=== PATIENT | female | born 2005 | race Caucasian/White ===

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

== ENCOUNTER 2024-05-13 17:05 | Emergency (ER) | payer OTHER, SELFPAY ==
[2024-05-13 17:17] VITALS: BP 115/73; PULSE 97; RESP 16; TEMP 36.8; O2SAT 100
--- NOTE | 2024-05-13 17:20 | ED.EXTPRO ---
HPI - Extremity Problem General Chief complaint: Extremity Problem,Nontraumatic Stated complaint: INFECTED R THUMB Time Seen by Provider: 05/13/24 17:20 Source: patient, RN notes reviewed and old records reviewed Mode of arrival: ambulatory Limitations: no limitations History of Present Illness HPI Narrative: 18 year old female presents to [facility] care accompanied by mother with complaints of swelling, redness, and pain to her right thumb which continues with no improvement after 24 hours of oral antibiotics, soaking of thumb and application of Mupiricin ointment to thumb area around nail. Patient states that she was getting something off of a wooden shelf on Friday and she was poked by a piece of wood into the side of her nail bed with then swelling redness and pain starting. She reports that she saw her PCP and there was some purulent drainage from the side of the nail bed and a culture was taken and sent for analysis and she was started on the Cephalexin and given Bactroban ointment which she has applied after soaking in Epsom salt.Mother concerned since no improvement in thumb and would like x-ray done and possibly increased antibiotic.Patient has redness and swelling to the dorsal aspect of proximal phalanx of right thumb, with swelling and redness to enriquez aspect to MCP, discoloration noted to the lateral aspect of her thumb nail MD Complaint: other (swelling and redness of right thumb) Onset (ago): day(s) (2) Pain Consistency: constant Location: right and upper extremity (thumb) Severity scale (1-10): 8 Quality: other (throbbing) Exacerbating factors: other (movement of thumb) Related Data Home Medications ?Medication ?Instructions ?Recorded ?Confirmed ?Last Taken ?Type albuterol sulfate 2.5 mg/3 mL See Rx Instructions .Route .COMPLEX 01/29/23 05/13/24 Unknown History (0.083 %) solution for nebulization albuterol sulfate 90 mcg/actuation See Rx Instructions .Route .COMPLEX 01/29/23 05/13/24 Unknown History aerosol inhaler budesonide-formoterol HFA 160 See Rx Instructions .Route .COMPLEX 01/29/23 01/29/23 Unknown History mcg-4.5 mcg/actuation aerosol inhaler (Symbicort) cephalexin 500 mg capsule mg 05/13/24 Unknown History mupirocin 2 % topical ointment topical 05/13/24 Unknown History Allergies Allergy/AdvReac Type Severity Reaction Status Date / Time No Known Drug Allergies Allergy Other Verified 05/14/24 09:23 Review of Systems Review of Systems: CONSTITUTIONAL: Denies fever, chills, or sweats. EYES: Denies visual changes, redness, or discharge. ENT: Denies rhinorrhea, congestion, sore throat, or otalgia. CARDIOVASCULAR: Denies chest pain, palpitations, or edema. RESPIRATORY: Denies cough or dyspnea. GASTROINTESTINAL: Denies abdominal pain, nausea, vomiting, or diarrhea. GENITOURINARY: Denies dysuria or hematuria. SKIN: Positive for swelling and redness of right thumb, discoloration to the lateral aspect of right thumb nail with throbbing pain MUSCULOSKELETAL: Denies back pain, joint pain, or myalgia. NEUROLOGIC: Denies headache, numbness, or weakness. PSYCHIATRIC: Denies anxiety or depression. All systems reviewed & are unremarkable except as noted in HPI and below PMFSH Past Medical History Medical History (Updated 05/15/24 @ 16:28 by Mily Cueto NP) Tonsillitis Ear infection Bronchitis Asthma Surgical History Surgical History (Updated 05/15/24 @ 16:27 by Mily Cueto NP) History of placement of ear tubes Social History Social History Smoking status: Never smoker Alcohol intake: never Substance use: never Living arrangements: with family Gender identity (if verbalized by the patient): Female Comments At time of signature, agree with nursing past medical, surgical, social and family history. There is no relevant family history pertinent to the presenting complaint Exam Narrative: GENERAL: Well-appearing, well-nourished, and in some acute distress. HEAD: Normocephalic, atraumatic. EYES: PERRLA and EOMI. ENT: Nares clear, no rhinorrhea or epistaxis. Mucous membranes moist.TM's normal throat pink with no swelling NECK: Supple. no lymphadenopathy CHEST: Clear to auscultation. No respiratory distress. no cough noted SAO2 100% on room air HEART: Regular rate and rhythm. No murmur heard. Normal peripheral pulses. ABDOMEN: Soft, nontender, nondistended, normal active bowel sounds. EXTREMITIES: Normal range of motion. No edema. SKIN: Warm, dry, right thumb red swollen and painful dorsal aspect proximal phalanx with discoloration to lateral nail bed, enriquez aspect redness and swelling to MCP joint.no fluctuation of tissue noted or any drainage noted from around nail bed.Family concerned since patient has been on oral antibiotics for 24 hours with no improvement or decrease in pain. NEURO: No focal deficits. Alert and oriented x3. Course Course Emergency Course: Patient is aware of diagnosis, understands and agrees to treatment plan.? Anticipatory guidance given.? Patient agrees to follow-up as directed and is aware of reasons to seek care at the emergency department. Portions of this record may have been created with voice recognition software Level of Care: Express Care Visit Vital Signs Vital signs: Vital Signs Temperature 36.8 C 05/13/24 17:17 Pulse Rate 97 05/13/24 17:17 Respiratory Rate 16 05/13/24 17:17 Blood Pressure 115/73 05/13/24 17:17 Pulse Oximetry 100 05/13/24 17:17 Temperature 36.8 C 05/13/24 17:17 Pulse Rate 97 05/13/24 17:17 Respiratory Rate 16 05/13/24 17:17 Blood Pressure 115/73 05/13/24 17:17 Pulse Oximetry 100 05/13/24 17:17 Reviewed MDM - Extremity (Nontraumatic) Imaging Data Radiologist's impression: [facility] [address] [place] [address] XRay Report Signed Patient: Laura Pizarro : 2005 MR#: [id number] Age: 18 Acct:[id number] Loc: [id number] ADM Date: 05/13/24Attending Dr: Ordering Physician: Mily Cueto APRN Date of Service: 05/13/24 Procedure(s): XR finger 1st RT min 2V Accession Number(s): [id number] cc: Mily Cueto APRN; Evaristo, Denice Kimball APN~ XR finger 1st RT min 2V Ordering provider: Mily Cueto NP History: . red swelling of joint proximal . Comparison: None. FINDINGS: BONES: No acute fracture or dislocation. JOINT SPACES: Normal. SOFT TISSUES: Soft tissue swelling is seen in the right thumb area. IMPRESSION: No acute osseous abnormality. Reviewed, dictated and finalized at location [facility] Please be advised this is a medical document. It is intended for danw-ow-srin communication. It is written in medical language and may contain unfamiliar abbreviations or verbiage. Medical documents are intended to carry relevant information, facts as evident, and the clinical opinion of the practitioner at the time of the encounter. This report may have been done utilizing a voice recognition system. Attempts have been made to correct errors. However, there may be uncorrected grammatical, spelling, and recognition errors present. The file time of this note does not necessarily represent the time of service. Dictated By: Vargas Roblero MD 05/13/24 [id number] Signed By: <Electronically signed by Vargas Roblero MD in OV> Critical Care Time Critical Care Time Critical Care Time: No Discharge Plan Discharge Clinical Impression: Swelling of right thumb, Pain of right thumb, Infection of nail bed of finger of right hand Patient Disposition: Home, Self-Care Condition: Stable Instructions: Antibiotic Form, Paronychia (ED), Swollen Joint (ED) Additional Instructions: soak right thumb in liquid Dial soap twice daily rinse apply mupirocin ointment and Band-Aid watch for increasing infection--redness, swelling, drainage Tylenol ibuprofen or Naprosyn for pain follow up with PCP in 5 days for a wound check or sooner if indicated recheck if develop fever, chills, increasing symptom Go to the ER if your symptoms become worse of if ANY new symptoms develop clindamycin 300 mg 3 times daily for 10 days If your symptoms persist, change or worsen significantly before you can contact your personal physician then please, without delay, go to the emergency department for further evaluation. Follow-up with PCP in 5 days or sooner if needed Dr Benedict hand surgeon [phone] at [facility] Patient Language: Cymraes Prescriptions: New mupirocin [Centany] 2 % ointment 1 applic topical BID Qty: 22 0RF clindamycin HCl 300 mg capsule 300 mg PO Q8H Qty: 30 0RF Rx Instructions: take with food No Action cephalexin 500 mg capsule mupirocin 2 % ointment TOPICAL albuterol sulfate 2.5 mg /3 mL (0.083 %) solution for nebulization See Rx Instructions .ROUTE .COMPLEX Rx Instructions: Rx albuterol sulfate 90 mcg/actuation HFA aerosol inhaler See Rx Instructions .ROUTE .COMPLEX Rx Instructions: Rx budesonide-formoterol [Symbicort] 160-4.5 mcg/actuation HFA aerosol inhaler See Rx Instructions .ROUTE .COMPLEX Rx Instructions: Rx Follow-up/Referrals: Evaristo,ALHAJI Nowak [Primary Care Provider] - Time of Disposition: 18:06 Quality [place] Coma Scale Eyes: Open Verbal: Oriented and Alert Motor: Follows Commands [place] Coma Total Score: 15
== END 2024-05-13 18:13 | disposition home or self-care (01) ==
PROVIDERS: Emergency Provider Registered Nurse; PCP Nurse Practitioner
DX: L03.011 Cellulitis of right finger (principal); J45.909 Unspecified asthma, uncomplicated
CPT/HCPCS: 73140; 99213; G0463

== ENCOUNTER 2024-05-18 15:23 | Outpatient (CLI) | payer OTHER, SELFPAY | END 2024-05-18 15:24 | disposition home or self-care (01) | PROVIDERS: PCP Nurse Practitioner; Visit Provider Plastic Surgery | DX: M79.644 Pain in right finger(s) (principal) | CPT/HCPCS: 76882 ==